=== PATIENT | male | born 1955 | race Caucasian/White ===

== ENCOUNTER 2018-11-21 16:34 | Inpatient (IN) | payer MEDICARE, OTHER ==
[~2018-11-21] VITALS: Ht 177.8 cm; Wt 81.6 kg
--- NOTE | 2018-11-21 22:20 | NUR ---
Admitted a 63 y/o male from [facility]. On 5150 hold as DTS. Patient admitting Dx. Psychosis. Medical dx. seizure d/o. NKA. Upon face to face evaluation, patient appeared alert and oriented x 3, paranoid, suspicious, aggressive, restless, frustrated, irritable, easily agitated, sarcastic and argumentative. Patient stated he still having on and off SI. Explanation provided, limit settings done and redirected the patient. Explained the paper works and patient sign the consents. Informed of visiting hours and unit policies. Belongings and contraband checked. Q15 min checks initiated. Care plan started. Vital signs checked and recorded. Patient's rights discussed, guide to prescription meds handbook provided. Patient advised of the hold. Notified Dr. Avelar of the admission. Will monitor patient for mood, safety and behavior. Will endorse to the day shift.
[2018-11-21] MEDS ORDERED: BLOOD SUGAR DIAGNOSTIC 1 EACH STRIP IN ONE (22:30)
[2018-11-21] MEDS ORDERED: MAGNESIUM HYDROXIDE 30 ML UDC PO PRN (22:30)
[2018-11-21] MEDS ORDERED: ACETAMINOPHEN 325 MG TABLET PO PRN (22:30)
[2018-11-21] MEDS ORDERED: MAG HYDROX/AL HYDROX/SIMETH 30 ML UDC PO PRN (22:30)
[2018-11-21] MEDS ORDERED: DIVA250T PO (22:43)
[2018-11-21] MEDS ORDERED: QUET200T PO (22:43)
[2018-11-21 22:55] VITALS: BP 121/82
[2018-11-21] MEDS: TEMAZEPAM 7.5 MG CAPSULE PO PRN (23:03)
[2018-11-22 07:39] LABS: CHOLESTEROL 141 mg/dL (<200); HDL CHOLESTEROL 51 mg/dL (40-60); LDL 79 mg/dL (0-99); TRIGLYCERIDES 44 mg/dL (30-150)
[2018-11-22 07:40] LABS: ALBUMIN 3.3 g/dL (3.4-5.0); BILIRUBIN,TOTAL 0.4 mg/dL (0.2-1.0); CALCIUM, SERUM 8.5 mg/dL (8.5-10.1); CREATININE 0.8 mg/dL (0.6-1.3); TOTAL PROTEIN, SERUM 6.6 g/dL (6.4-8.2)
[2018-11-22 08:00] VITALS: BP 122/78
[2018-11-22 16:00] VITALS: BP 117/78
--- NOTE | 2018-11-22 16:19 | NUR ---
SW conducted a substance abuse intervention with the pt due to his alcohol and cannabis use.
--- NOTE | 2018-11-22 16:19 | NUR ---
Initial Discharge Plan: Pt is currently homeless and would like a residential facility placement. SW will work with the pt and the MD regarding appropriate discharge planning. SW will form a safe and proper discharge.
[2018-11-22] MEDS: DIVALPROEX SODIUM 250 MG TABLET.DR PO SCH ×2 (17:05→21:33)
[2018-11-22 20:13] VITALS: BP 108/62
[2018-11-22] MEDS: TEMAZEPAM 7.5 MG CAPSULE PO PRN (21:33)
[2018-11-22] MEDS: QUETIAPINE FUMARATE 100 MG TABLET PO SCH (21:33)
[2018-11-23 08:00] VITALS: BP 105/66
[2018-11-23] MEDS: DIVALPROEX SODIUM 250 MG TABLET.DR PO SCH ×2 (09:49→21:11)
[2018-11-23] MEDS: clonazePAM 0.5 MG TABLET PO PRN ×3 (10:41→19:33)
--- NOTE | 2018-11-23 10:42 | NUR ---
RN NOTE: PATIENT IS AGITATED AND RESTLESS. PRN KLONOPIN GIVEN.
--- NOTE | 2018-11-23 13:15 | NUR ---
SW called the pts sister, Mona ([phone]), and left a voicemail stating that the SW would like to discuss the pts treatment and discharge planning.
--- NOTE | 2018-11-23 15:30 | NUR ---
Group Note: SW encouraged pt to attend group therapy on 11/23/18 at 2:30pm discussing anger management for when they are in the hospital and for once they are discharged but pt unable to attend.
[2018-11-23 16:00] VITALS: BP 128/79
--- NOTE | 2018-11-23 16:30 | NUR ---
RN NOTE: PATIENT C/O ANXIOUSNESS AND IS RESTLESS/AGITATED. PRN KLONOPIN GIVEN.
--- NOTE | 2018-11-23 19:33 | NUR ---
GPS RN NOTE, PATIENT HAS A COMPLAINT OF FEELING ANXIOUS AND IS REQUESTING KLONOPIN AT THIS TIME. PATIENT VITAL SIGNS ARE STABLE. GAVE KLONOPIN 0.5MG PO Q4HR PRN ORDERED. WILL REASSESS FOR ANXIETY AND I WILL CONTINUE TO MONITOR THIS PATIENT.
[2018-11-23 20:00] VITALS: BP 133/95
[2018-11-23 20:07] VITALS: BP 133/95
[2018-11-23] MEDS: QUETIAPINE FUMARATE 100 MG TABLET PO SCH (21:12)
[2018-11-24 08:00] VITALS: BP 97/69
[2018-11-24] MEDS: DIVALPROEX SODIUM 250 MG TABLET.DR PO SCH ×2 (08:33→21:00)
--- NOTE | 2018-11-24 10:31 | NUR ---
WOUND CARE CONSULT; PT PRESENTS WITH RT POSTERIOR ANKLE WOUND WITH THICKENED SCAR, PRESENT ON ADMISSION. RECOMMEND DPM CONSULT. LIMITED ASSESSMENT TODAY DUE TO PT ONLY ALLOWING SKIN ASSESSMENT OF RT FOOT. PT IS CONTINENT AND AMBULATORY WITH CURRENT REHAN SCORE OF 21. Addendum: 11/24/18 at 1032 by PHI LAWLER WNDNU Amended: Links added. Addendum: 11/24/18 at [address] PEREZ NOTIFIED OF DPM CONSULT REQUEST.
[2018-11-24 16:00] VITALS: BP 154/89
[2018-11-24] MEDS: clonazePAM 0.5 MG TABLET PO PRN (16:51)
--- NOTE | 2018-11-24 16:53 | NUR ---
RN NOTE- PT C/O RESTLESSNESS. PRN KLONOPIN GIVEN.
[2018-11-24 20:00] VITALS: BP 127/55
[2018-11-24 20:52] VITALS: BP 127/55
[2018-11-24] MEDS: QUETIAPINE FUMARATE 100 MG TABLET PO SCH (21:00)
--- NOTE | 2018-11-25 03:56 | NUR ---
RN NOTES: ABLE TO SLEEP AND REST IN THE NIGHT, HE GET UP AT AROUND 0130, HE WALK GOING TO THE TV ROOM AND RETURNED BACK TO HIS ROOM AND TRY TO GO BACK TO SLEEP.FALL,SAFETY PRECAUTION OBSERVED.
[2018-11-25 08:00] VITALS: BP 124/93
[2018-11-25] MEDS: DIVALPROEX SODIUM 250 MG TABLET.DR PO SCH ×2 (08:17→20:56)
[2018-11-25] MEDS: VITAMINS A AND D 56.7 GM TUBE TP SCH (08:22)
[2018-11-25] MEDS: clonazePAM 0.5 MG TABLET PO PRN ×2 (09:37→19:43)
[2018-11-25 16:00] VITALS: BP 120/82
[2018-11-25 19:40] VITALS: BP 118/73
--- NOTE | 2018-11-25 19:43 | NUR ---
GPS RN notes Pt is feeling anxious and restless. Administered Klonopin 0.5 mg/1 tab/PO as ordered for anxiety. BP 118/73, Pulse 70. Charge nurse ALESSANDRO Berrios is informed and notify. Instructed to call. Will continue Q 15mins check.
[2018-11-25 20:00] VITALS: BP 118/73
[2018-11-25 20:16] VITALS: BP 118/73
[2018-11-25] MEDS: QUETIAPINE FUMARATE 100 MG TABLET PO SCH (21:00)
[2018-11-26 08:00] VITALS: BP 107/59
[2018-11-26] MEDS: VITAMINS A AND D 56.7 GM TUBE TP SCH (08:37)
[2018-11-26] MEDS: DIVALPROEX SODIUM 250 MG TABLET.DR PO SCH ×2 (08:37→21:12)
--- NOTE | 2018-11-26 08:45 | NUR ---
GPS RN NOTE: PT AGITATED SCREAMING , YELLING ,THREATENING OF PUNCHING STAFF,USING UNAPPROPRIATED LANGUAGE, UNABLE TO CONTROL BEHAVIOR.DR MANNING NOTIFIED WITH STAT ORDER OF ZYPREXA 5 MG IM,ATIVAN 1MG IM,ORDER PLACED AND CARED OUT.
[2018-11-26] MEDS ORDERED: LORAZEPAM INJ 2 MG/ML VIAL IM ONE (09:00)
[2018-11-26] MEDS ORDERED: OLANZAPINE 10 MG VIAL IM ONE (09:00)
[2018-11-26] MEDS: clonazePAM 0.5 MG TABLET PO PRN ×2 (13:13→18:35)
--- NOTE | 2018-11-26 13:13 | NUR ---
GPS RN notes Pt is feeling anxious Klonopin 0.5 mg/1 tab/PO given per order will continue monitoring.
[2018-11-26 16:00] VITALS: BP 125/61
--- NOTE | 2018-11-26 18:40 | NUR ---
GPS RN notes Pt is feeling anxious Klonopin 0.5 mg/1 tab/PO given per order will continue monitoring.
[2018-11-26 20:00] VITALS: BP 105/56
[2018-11-26 20:10] VITALS: BP 105/56
[2018-11-26] MEDS: QUETIAPINE FUMARATE 100 MG TABLET PO SCH (21:13)
[2018-11-27 08:00] VITALS: BP 123/81
[2018-11-27] MEDS: clonazePAM 0.5 MG TABLET PO PRN ×2 (08:16→21:15)
[2018-11-27] MEDS: DIVALPROEX SODIUM 250 MG TABLET.DR PO SCH ×2 (08:16→20:49)
--- NOTE | 2018-11-27 08:16 | NUR ---
GPS RN notes Pt is feeling anxious Klonopin 0.5 mg/1 tab/PO given per order will continue monitoring.
[2018-11-27] MEDS: VITAMINS A AND D 56.7 GM TUBE TP SCH (08:21)
--- NOTE | 2018-11-27 09:35 | NUR ---
Individual Intervention: SW met with the pt to discuss his discharge planning. SW informed him that the SW will be sending out referrals for penitentiary facilities today and then stated that she will keep her updated.
--- NOTE | 2018-11-27 10:30 | NUR ---
SW called the pts sister, Mona ([phone]), and left a voicemail stating that the SW would like to discuss the pts treatment and discharge planning.
--- NOTE | 2018-11-27 10:46 | NUR ---
PC Hearing Notification; SW called the pts sister, Mona ([phone]), and left a voicemail informing her that the pt is going to be having a hearing today and what that entails.
--- NOTE | 2018-11-27 10:47 | NUR ---
RICHAR faxed a referral to [facility] with attention to Nikolas to the fax number: [phone].
--- NOTE | 2018-11-27 14:52 | NUR ---
Group Note: SW encouraged pt to attend group therapy on 11/27/18 at 1:30pm discussing support systems when they are in the hospital and for once they are discharged but the pt was unable to attend. Pt is sleeping and is not easily aroused.
--- NOTE | 2018-11-27 15:05 | NUR ---
Shi ([phone]) from [facility] stated that the pt does not have a skilled need and therefore was denied.
--- NOTE | 2018-11-27 15:06 | NUR ---
RICHAR faxed a referral to two facilities listed below: [facility] to the fax number: [phone] [facility] to the fax number: [phone]
--- NOTE | 2018-11-27 15:41 | NUR ---
Latrice ([phone]) from [facility] called the SW and stated that the pt was denied to their facility.
[2018-11-27 16:00] VITALS: BP 136/83
[2018-11-27 19:42] VITALS: BP 124/85
[2018-11-27] MEDS: TEMAZEPAM 7.5 MG CAPSULE PO PRN (20:50)
[2018-11-27] MEDS: QUETIAPINE FUMARATE 100 MG TABLET PO SCH (21:14)
[2018-11-28 08:00] VITALS: BP 114/73
[2018-11-28] MEDS: clonazePAM 0.5 MG TABLET PO PRN ×3 (09:56→19:51)
[2018-11-28] MEDS: DIVALPROEX SODIUM 250 MG TABLET.DR PO SCH ×2 (09:57→20:51)
[2018-11-28] MEDS: VITAMINS A AND D 56.7 GM TUBE TP SCH (09:57)
--- NOTE | 2018-11-28 09:58 | NUR ---
GIVEN CLONOPIN FOR AGITATION.
--- NOTE | 2018-11-28 10:38 | NUR ---
Individual Intervention: SW met with the pt to discuss his discharge planning. Pt stated that he was beginning to feel stressed because he was not sure if he was going to be able to get placement. SW stated that she is working with nursing facilities that can offer him the resources that he needs. He stated that he eventually wants to be able to live on his own and the SW stated that the facility that he will go to can assist him with the next step.
--- NOTE | 2018-11-28 10:42 | NUR ---
SNF Referral: RICHAR faxed a referral to [facility] with attention to ABEL and Mac to the fax number: [phone].
--- NOTE | 2018-11-28 12:33 | NUR ---
ABEL ([phone]) from [facility] contacted the and stated that the pt was accepted to their facility.
--- NOTE | 2018-11-28 15:27 | NUR ---
GIVEN KLONOPIN FOR AGITATION.
[2018-11-28 15:49] VITALS: BP 140/86
[2018-11-28 20:11] VITALS: BP_SYST 127
[2018-11-28] MEDS: QUETIAPINE FUMARATE 100 MG TABLET PO SCH (21:02)
[2018-11-28] MEDS: TEMAZEPAM 7.5 MG CAPSULE PO PRN (21:31)
[2018-11-29 08:00] VITALS: BP 122/80
[2018-11-29] MEDS: DIVALPROEX SODIUM 250 MG TABLET.DR PO SCH ×2 (09:39→20:03)
[2018-11-29] MEDS: VITAMINS A AND D 56.7 GM TUBE TP SCH (09:40)
[2018-11-29] MEDS: clonazePAM 0.5 MG TABLET PO PRN ×2 (10:08→18:09)
--- NOTE | 2018-11-29 10:09 | NUR ---
MEDICATED WITH CLONOPIN FOR AGITATION.
[2018-11-29 16:00] VITALS: BP 140/92
--- NOTE | 2018-11-29 18:09 | NUR ---
med. with clonopin for agitation.
--- NOTE | 2018-11-29 18:30 | NUR ---
having outburst in hallway going through suitcase throwing things on floor. informed hot car charger that pt. just had clonopin.
[2018-11-29 19:58] VITALS: BP 148/96
[2018-11-29] MEDS: QUETIAPINE FUMARATE 100 MG TABLET PO SCH (21:11)
[2018-11-29] MEDS: TEMAZEPAM 7.5 MG CAPSULE PO PRN (21:32)
[2018-11-30 08:00] VITALS: BP 119/85
[2018-11-30] MEDS: DIVALPROEX SODIUM 250 MG TABLET.DR PO SCH (08:34)
[2018-11-30] MEDS: VITAMINS A AND D 56.7 GM TUBE TP SCH (08:35)
--- NOTE | 2018-11-30 09:42 | NUR ---
DR. CALDERA GAVE AN ORDER TO D/C [facility] AND D/C TO [facility] AND TO FOLLOW UP WITH PSYCH AND MEDICAL DOCTORS. Addendum: 11/30/18 at [address] TATE RN DR. CALDERA ORDERED TO CONTINUE SAME MEDS INCLUDING PRN.
--- NOTE | 2018-11-30 10:05 | NUR ---
Individual Intervention: The SW met with the pt regarding his placement. He stated that he wanted to know more about the facility and what it entails such as the rules and regulations. Pt expressed that he is a young man and does not want to feel as if he is locked up. SW expressed that being in the facility will provide him with retirement and more appropriate care than what he would receive out in the streets. SW stated that their social service team will also be able to assist the pt with his next step. He stated that he will go as long as he can sign himself out whenever he pleases. SW had the pt sign the homeless waiver and the choice of vendor form.
--- NOTE | 2018-11-30 11:05 | NUR ---
RICHAR called the pts sister, Mona ([phone]), and left a voicemail that informed her that the pt was discharged to [facility] today.
--- NOTE | 2018-11-30 11:45 | NUR ---
GPS/RN-NOTES PATIENT WAS DISCHARGE TO [facility] TODAY. DR. CALDERA AND MICHAEL DAI AWARE AND AGREED OF PATIENT DISCHARGE.PATIENT LEFT THE UNIT IN STABLE CONDITION ALERT ORIENTED X3 AMBULATORY STEADY GAIT. PATIENT DID NOT VERBALIZED SI/HI ,DENIES VISUAL/AUDITORY HALLUCINATIONS AT THE TIME OF DISCHARGE.REPORT WAS GIVEN TO MORIAH( DIRECTOR INSTRUMENTATION).PATIENT WAS PICK BY AMBULANCE VIA GURNEY WITH TWO STAFF ASSIST. PATIENT LEFT THE UNIT WITH ALL BELONGINGS . Addendum: 11/30/18 at 1345 by MAGALY ROBBINS RN PATIENT REFUSED FULL BODY ASSESSMENT AND PICTURE TAKEN PRIOR TO DISCHARGE.
--- NOTE | 2018-11-30 12:53 | NUR ---
Discharge Note: Pt was discharged to SNF located at [address] [place] [id number]; ([phone]). Pt was transported via [facility] at 12PM. Pts sister, Mona ([phone]), was made aware of the discharge. Upon discharge, the pt appeared to be in a euthymic mood and presented with an anxious affect. Pt denied both suicidal and homicidal ideation as well as auditory and visual hallucinations. Pt was provided with homeless resources that included shelters, food cordero, health clinics, psychiatric services and substance abuse resources. Pt will be under the care of his psychiatrist, Dr. Braun, located at [address] [address], [address] [place] [address]; and his home mission worker, Dr. Pollard, [address] [place] [address]; . Pt will continue to address his substance use with his treatment team.
== END 2018-11-30 11:45 | DRG 885 ==
LOC: GPS 22:01
PROVIDERS: ADMIT Psychiatry & Neurology Psychiatry; ATTEND Internal Medicine
DX: F31.60 Bipolar disorder, current episode mixed, unspecified (principal); R45.851 Suicidal ideations; F29 Unspecified psychosis not due to a substance or known physiological condition; F41.9 Anxiety disorder, unspecified; Z79.899 Other long term (current) drug therapy; Z91.14 Patient's other noncompliance with medication regimen
CPT/HCPCS: 36415; 80053-TC; 80061-TC; 80164-TC; 87081-TC; J2060; J3490

== ENCOUNTER 2020-08-13 18:03 | Inpatient (IN) | payer MEDICARE, OTHER ==
[~2020-08-13] VITALS: Ht 177.8 cm; Wt 89.4 kg
[~2020-08-13 18:03] MED LIST: QUET200T PO
[2020-08-13] MEDS ORDERED: TEMAZEPAM 7.5 MG CAPSULE PO PRN (18:30)
[2020-08-13] MEDS ORDERED: MAG HYDROX/AL HYDROX/SIMETH 30 ML UDC PO PRN (18:30)
[2020-08-13] MEDS ORDERED: BLOOD SUGAR DIAGNOSTIC 1 EACH STRIP IN ONE (18:30)
[2020-08-13] MEDS ORDERED: ACETAMINOPHEN 325 MG TABLET PO PRN (18:30)
[2020-08-13] MEDS ORDERED: MAGNESIUM HYDROXIDE 30 ML UDC PO PRN (18:30)
[2020-08-13] MEDS ORDERED: DIVA500T2 PO ×2 (18:38)
[2020-08-13] MEDS ORDERED: GABA-532 PO (18:38)
[2020-08-13] MEDS ORDERED: ATOR20TA PO (19:51)
[2020-08-13 20:00] VITALS: BP_SYST 126; BP_SYST 140; BP_DIAS 79; BP_DIAS 87
[2020-08-13] MEDS ORDERED: DIVALPROEX SODIUM 500 MG TABLET.DR PO SCH (22:00)
[2020-08-13] MEDS: CEPHALEXIN MONOHYDRATE 250 MG CAPSULE PO SCH (23:08)
[2020-08-14] MEDS: CEPHALEXIN MONOHYDRATE 250 MG CAPSULE PO SCH ×3 (06:05→17:11)
[2020-08-14 07:01] LABS: ALBUMIN 3.1 g/dL (3.4-5.0); BILIRUBIN,TOTAL 0.2 mg/dL (0.2-1.0); CALCIUM, SERUM 8.7 mg/dL (8.5-10.1); CREATININE 0.8 mg/dL (0.6-1.3); POTASSIUM 4.2 mmol/L (3.5-5.1); TOTAL PROTEIN, SERUM 6.5 g/dL (6.4-8.2)
[2020-08-14 07:30] LABS: THYROID STIMULATING HORMONE 1.725 uIU/mL (0.358-3.74)
[2020-08-14 08:00] VITALS: BP 147/91
[2020-08-14] MEDS: GABAPENTIN 100 MG CAPSULE PO SCH ×3 (08:45→16:30)
[2020-08-14] MEDS ORDERED: DIVALPROEX SODIUM 500 MG TABLET.DR PO SCH (09:00)
[2020-08-14 16:00] VITALS: BP 112/77
[2020-08-14 19:36] VITALS: BP 142/74
[2020-08-14] MEDS ORDERED: QUETIAPINE FUMARATE 100 MG TABLET PO SCH (21:00)
[2020-08-14] MEDS: DIVALPROEX SODIUM 500 MG TABLET.DR PO SCH (21:44)
[2020-08-14] MEDS: ATORVASTATIN 10 MG TABLET PO SCH (21:44)
[2020-08-15] MEDS: CEPHALEXIN MONOHYDRATE 250 MG CAPSULE PO SCH ×5 (00:47→23:09)
[2020-08-15 08:00] VITALS: BP 148/94
[2020-08-15] MEDS: GABAPENTIN 100 MG CAPSULE PO SCH ×3 (08:29→17:09)
[2020-08-15] MEDS: DIVALPROEX SODIUM 500 MG TABLET.DR PO SCH ×2 (08:29→21:34)
[2020-08-15] MEDS: QUETIAPINE FUMARATE 100 MG TABLET PO SCH ×3 (12:07→21:01)
[2020-08-15 16:08] VITALS: BP 133/87
[2020-08-15 20:07] VITALS: BP 137/77
[2020-08-15 20:21] VITALS: BP 137/77
[2020-08-15] MEDS: ATORVASTATIN 10 MG TABLET PO SCH (21:12)
[2020-08-16] MEDS: CEPHALEXIN MONOHYDRATE 250 MG CAPSULE PO SCH ×2 (05:21→13:10)
[2020-08-16 08:00] VITALS: BP 133/84
[2020-08-16] MEDS: DIVALPROEX SODIUM 500 MG TABLET.DR PO SCH ×2 (08:33→21:02)
[2020-08-16] MEDS: GABAPENTIN 100 MG CAPSULE PO SCH ×3 (08:33→17:45)
[2020-08-16] MEDS: QUETIAPINE FUMARATE 100 MG TABLET PO SCH ×4 (08:33→20:57)
[2020-08-16 16:00] VITALS: BP 122/81
[2020-08-16] MEDS: CEPHALEXIN MONOHYDRATE 500 MG CAPSULE PO SCH (17:45)
[2020-08-16 19:55] VITALS: BP 139/76
[2020-08-16 20:01] VITALS: BP 139/76
[2020-08-16] MEDS: ATORVASTATIN 10 MG TABLET PO SCH (21:02)
[2020-08-17] MEDS: CEPHALEXIN MONOHYDRATE 500 MG CAPSULE PO SCH ×5 (00:05→23:04)
[2020-08-17 08:00] VITALS: BP 132/78
[2020-08-17] MEDS: GABAPENTIN 100 MG CAPSULE PO SCH ×3 (08:46→16:47)
[2020-08-17] MEDS: DIVALPROEX SODIUM 500 MG TABLET.DR PO SCH ×2 (08:46→21:10)
[2020-08-17] MEDS: QUETIAPINE FUMARATE 100 MG TABLET PO SCH ×4 (08:47→21:10)
[2020-08-17 16:00] VITALS: BP 127/95
[2020-08-17 20:12] VITALS: BP 152/88
[2020-08-17] MEDS: ATORVASTATIN 10 MG TABLET PO SCH (21:10)
[2020-08-18] MEDS: CEPHALEXIN MONOHYDRATE 500 MG CAPSULE PO SCH ×4 (05:06→23:48)
[2020-08-18 08:00] VITALS: BP 116/71
[2020-08-18] MEDS: DIVALPROEX SODIUM 500 MG TABLET.DR PO SCH ×2 (08:51→21:11)
[2020-08-18] MEDS: GABAPENTIN 100 MG CAPSULE PO SCH ×3 (08:51→17:35)
[2020-08-18] MEDS: QUETIAPINE FUMARATE 100 MG TABLET PO SCH ×4 (08:54→21:11)
[2020-08-18 16:00] VITALS: BP 147/75
[2020-08-18 20:00] VITALS: BP 120/58
[2020-08-18] MEDS: ATORVASTATIN 10 MG TABLET PO SCH (21:11)
[2020-08-19] MEDS: CEPHALEXIN MONOHYDRATE 500 MG CAPSULE PO SCH ×4 (06:14→23:24)
[2020-08-19 07:18] LABS: BASOPHILS % (AUTO) 0.6 % (0.0-2.0); HEMATOCRIT 43 % (39-51); HEMOGLOBIN 14.6 g/dL (13.5-17.5); LYMPHOCYTES % (AUTO) 39.3 % (20.0-44.0); MEAN CORPUSCULAR HGB CONC 34 g/dl (31.0-36.0); MEAN CORPUSCULAR VOLUME 90 fL (80-96); MONOCYTES # (AUTO) 0.5 /CMM (0.1-1.30); MONOCYTES % (AUTO) 10.9 % (2.0-12.0); NEUTROPHILS # (AUTO) 2.3 /CMM (1.8-8.9); NEUTROPHILS % (AUTO) 46.2 % (43.0-81.0); PLATELET COUNT (AUTO) 209 /CMM (150-450); RED BLOOD CELL COUNT(AUTO) 4.72 MIL/uL (4.5-6.0)
[2020-08-19 08:00] VITALS: BP 109/75
[2020-08-19 08:11] LABS: ALBUMIN 3.3 g/dL (3.4-5.0); BILIRUBIN,TOTAL 0.2 mg/dL (0.2-1.0); CALCIUM, SERUM 8.7 mg/dL (8.5-10.1); CREATININE 0.9 mg/dL (0.6-1.3); POTASSIUM 4.4 mmol/L (3.5-5.1); TOTAL PROTEIN, SERUM 6.8 g/dL (6.4-8.2)
[2020-08-19] MEDS: QUETIAPINE FUMARATE 100 MG TABLET PO SCH ×4 (09:13→21:42)
[2020-08-19] MEDS: GABAPENTIN 100 MG CAPSULE PO SCH ×3 (09:13→17:52)
[2020-08-19] MEDS: DIVALPROEX SODIUM 500 MG TABLET.DR PO SCH ×2 (09:13→21:44)
[2020-08-19 15:56] VITALS: BP 110/59
[2020-08-19 20:00] VITALS: BP 110/75
[2020-08-19] MEDS: ATORVASTATIN 10 MG TABLET PO SCH (21:44)
[2020-08-20] MEDS: CEPHALEXIN MONOHYDRATE 500 MG CAPSULE PO SCH ×3 (06:08→17:03)
[2020-08-20 08:00] VITALS: BP 115/73
[2020-08-20] MEDS: QUETIAPINE FUMARATE 100 MG TABLET PO SCH ×4 (08:38→21:33)
[2020-08-20] MEDS: DIVALPROEX SODIUM 500 MG TABLET.DR PO SCH ×2 (08:38→21:33)
[2020-08-20] MEDS: GABAPENTIN 100 MG CAPSULE PO SCH ×3 (08:38→17:03)
[2020-08-20 16:00] VITALS: BP 130/87
[2020-08-20 19:48] VITALS: BP 148/88
[2020-08-20] MEDS: ATORVASTATIN 10 MG TABLET PO SCH (21:33)
[2020-08-21] MEDS: CEPHALEXIN MONOHYDRATE 500 MG CAPSULE PO SCH ×3 (00:55→12:12)
[2020-08-21 08:00] VITALS: BP 122/57
[2020-08-21] MEDS: GABAPENTIN 100 MG CAPSULE PO SCH ×3 (08:57→17:03)
[2020-08-21] MEDS: DIVALPROEX SODIUM 500 MG TABLET.DR PO SCH ×2 (08:57→21:10)
[2020-08-21] MEDS: QUETIAPINE FUMARATE 100 MG TABLET PO SCH ×3 (08:57→21:09)
[2020-08-21] MEDS: LORAZEPAM 0.5 MG TABLET PO PRN ×2 (15:54→21:10)
[2020-08-21 16:00] VITALS: BP 129/70
[2020-08-21 20:17] VITALS: BP 131/93
[2020-08-21] MEDS: ATORVASTATIN 10 MG TABLET PO SCH (21:10)
[2020-08-22 08:00] VITALS: BP 125/79
[2020-08-22] MEDS: QUETIAPINE FUMARATE 100 MG TABLET PO SCH ×3 (08:29→20:41)
[2020-08-22] MEDS: DIVALPROEX SODIUM 500 MG TABLET.DR PO SCH ×2 (08:29→21:12)
[2020-08-22] MEDS: GABAPENTIN 100 MG CAPSULE PO SCH ×3 (08:29→16:59)
[2020-08-22] MEDS ORDERED: OLANZAPINE 10 MG VIAL IM ONE ×2 (09:30)
[2020-08-22 16:00] VITALS: BP 117/73
[2020-08-22] MEDS: CLOTRIMAZOLE 1% 15 GM TUBE TP SCH (16:59)
[2020-08-22 20:00] VITALS: BP 144/88
[2020-08-22] MEDS: ATORVASTATIN 10 MG TABLET PO SCH (21:12)
[2020-08-23 08:00] VITALS: BP 117/79
[2020-08-23] MEDS: QUETIAPINE FUMARATE 100 MG TABLET PO SCH ×4 (08:12→20:33)
[2020-08-23] MEDS: GABAPENTIN 100 MG CAPSULE PO SCH ×3 (08:13→16:04)
[2020-08-23] MEDS: LORAZEPAM 0.5 MG TABLET PO PRN (08:13)
[2020-08-23] MEDS: DIVALPROEX SODIUM 500 MG TABLET.DR PO SCH ×2 (08:13→21:14)
[2020-08-23] MEDS: CLOTRIMAZOLE 1% 15 GM TUBE TP SCH ×2 (08:14→16:05)
[2020-08-23 16:00] VITALS: BP 129/77
[2020-08-23 20:00] VITALS: BP 138/77
[2020-08-23 20:02] VITALS: BP 138/77
[2020-08-23] MEDS: ATORVASTATIN 10 MG TABLET PO SCH (21:14)
[2020-08-24] MEDS: GABAPENTIN 100 MG CAPSULE PO SCH ×3 (07:50→16:20)
[2020-08-24] MEDS: QUETIAPINE FUMARATE 100 MG TABLET PO SCH ×4 (07:50→20:38)
[2020-08-24] MEDS: DIVALPROEX SODIUM 500 MG TABLET.DR PO SCH ×2 (07:51→21:16)
[2020-08-24 08:00] VITALS: BP 114/55
[2020-08-24] MEDS: CLOTRIMAZOLE 1% 15 GM TUBE TP SCH ×2 (08:07→16:21)
[2020-08-24 16:00] VITALS: BP 134/60
[2020-08-24 20:30] VITALS: BP 130/70
[2020-08-24] MEDS: ATORVASTATIN 10 MG TABLET PO SCH (21:16)
[2020-08-25 08:00] VITALS: BP 113/69
[2020-08-25] MEDS: DIVALPROEX SODIUM 500 MG TABLET.DR PO SCH (08:46)
[2020-08-25] MEDS: GABAPENTIN 100 MG CAPSULE PO SCH ×2 (08:46→12:36)
[2020-08-25] MEDS: QUETIAPINE FUMARATE 100 MG TABLET PO SCH ×2 (08:46→12:36)
[2020-08-25] MEDS: CLOTRIMAZOLE 1% 15 GM TUBE TP SCH (08:47)
== END 2020-08-25 13:20 | DRG 885 ==
LOC: GPS 18:03
PROVIDERS: ADMIT Psychiatry & Neurology Psychosomatic Medicine; ATTEND Internal Medicine
DX: F25.0 Schizoaffective disorder, bipolar type (principal); N17.0 Acute kidney failure with tubular necrosis; L03.116 Cellulitis of left lower limb; R45.851 Suicidal ideations; E44.1 Mild protein-calorie malnutrition; G40.909 Epilepsy, unspecified, not intractable, without status epilepticus; E11.9 Type 2 diabetes mellitus without complications; I10 Essential (primary) hypertension; Z59.0 Homelessness; L03.032 Cellulitis of left toe; Z89.422 Acquired absence of other left toe(s); G31.84 Mild cognitive impairment of uncertain or unknown etiology; F19.10 Other psychoactive substance abuse, uncomplicated; M25.522 Pain in left elbow; F29 Unspecified psychosis not due to a substance or known physiological condition; E11.42 Type 2 diabetes mellitus with diabetic polyneuropathy; Z79.899 Other long term (current) drug therapy; Z91.14 Patient's other noncompliance with medication regimen; B35.1 Tinea unguium
CPT/HCPCS: 36415; 73080-TC; 80053-TC; 80061-TC; 80164-TC; 82962-TC; 84443-TC; 85025-TC; 87081-TC; 97116-TC; 97530-TC; J3490